=== PATIENT | male | born 1955 | race Caucasian/White ===

== ENCOUNTER 2024-03-10 07:47 | Day surgery (SDC) | payer OTHER, MEDICARE ==
[~2024-03-10] VITALS: Ht 182.9 cm; Wt 103.4 kg
[2024-03-10] MEDS: NS 1,000 ML IV ONE (06:00)
[~2024-03-10 07:47] MED LIST: ATOR40TA75 PO; LISI20TA33 PO
[2024-03-10] MEDS ORDERED: propofoL 200 MG/20 ML VIAL As Ordered ONE (09:26)
[2024-03-10] MEDS ORDERED: LIDOCAINE 2% 100MG/5ML SDV (FOR ANES.) As Ordered ONE (09:26)
[2024-03-10 10:20] VITALS: BP 130/76; TEMP 98.1; O2SAT 95
== END 2024-03-10 10:20 | disposition home or self-care (01) ==
LOC: M OPP 07:47
PROVIDERS: ATTEND Internal Medicine Gastroenterology
DX: Z12.11 Encounter for screening for malignant neoplasm of colon (principal); D12.2 Benign neoplasm of ascending colon; K57.30 Diverticulosis of large intestine without perforation or abscess without bleeding; K64.8 Other hemorrhoids; K64.4 Residual hemorrhoidal skin tags; I10 Essential (primary) hypertension; E78.00 Pure hypercholesterolemia, unspecified; Z79.899 Other long term (current) drug therapy; Z87.891 Personal history of nicotine dependence

== ENCOUNTER → 2024-05-05 | Outpatient (REF) | payer OTHER, MEDICARE | LOC: M LAB REF 15:12 | PROVIDERS: ATTEND Surgery | DX: L72.3 Sebaceous cyst (principal) ==

== ENCOUNTER → 2024-06-03 | Outpatient (REF) | payer OTHER | LOC: M LAB REF 17:57 | PROVIDERS: ATTEND Surgery | DX: L72.3 Sebaceous cyst (principal) ==